=== PATIENT | female | born 1945 | race Caucasian/White ===

== ENCOUNTER → 2017-01-10 | Outpatient (CLI) | payer MEDICARE, OTHER ==
--- NOTE | 2017-01-16 09:53 | MM ---
Reason for exam: clinical finding. Last mammogram was performed 9 years and 6 months ago. History: Patient is postmenopausal. Benign excisional biopsy of the left breast, 1968. Indicated problem(s): pain in the right breast. Physical Findings: Nurse did not find any significant physical abnormalities on exam. MG Diagnostic Mammo w CAD KATARINA Bilateral CC and MLO view(s) were taken. Prior study comparison: July 26, 2014, mammogram, performed at [facility]. December 18, 2010, mammogram, performed at [facility]. December 14, 2009, mammogram, performed at [facility]. October 20, 2008, mammogram, performed at [facility]. October 20, 2007, mammogram, performed at [facility]. July 21, 2007, bilateral digital screening mammogram. The breast tissue is heterogeneously dense. This may lower the sensitivity of mammography. Stable benign calcifications. There is no discrete abnormality. No significant new findings when compared with previous films. These results were verbally communicated with the patient on 01/16/17. ASSESSMENT: Benign, BI-RAD 2 RECOMMENDATION: Routine screening mammogram of both breasts in 1 year. Manage patient on a clinical basis.
== END | disposition home or self-care (01) ==
LOC: RADMAMWWP 12:49
DX: N64.4 Mastodynia (principal)

== ENCOUNTER 2017-12-09 10:52 | Emergency (ER) | payer MEDICARE, OTHER ==
[2017-12-09] MEDS ORDERED: SODIUM CHLORIDE 0.9% 1,000 ML IV STA (13:21)
--- NOTE | 2017-12-09 13:24 | ED ---
General Adult HPI - General Chief complaint: Recheck/Abnormal Lab/Rx Stated complaint: Ankle, Lower Back,Neck Pain Time Seen by Provider: 12/09/17 13:04 Source: patient, RN notes reviewed Mode of arrival: ambulatory Limitations: no limitations - History of Present Illness Initial comments: Patient 72-year-old female presented to the emergency room today with multiple complaints. She does admit that she's had some chronic pains going to her feet and legs bilaterally with her sciatic pain. She also admits to some numbness tingling in the upper extremities and some pain to the upper back. States been going on for several months he seems to be getting worse. She states that she has dry mouth. She states that she's had some nerve damage after a dental procedure several years ago that seems it's gotten worse. Patient does admit to headaches. She does admit to a cough. She states she really emergency room today She does not she can function at home with these pain. She has tried follow-up the family doctor appointment with a neurologist for her. She admits it's 2 weeks away. She has no rashes post a few of those at home over the next 2 weeks. Patient states she's been taking Tylenol for pain. She states she was on [place] in the past. She denies any other complaints currently. Patient denies any recent fever, chills, shortness of breath, chest pain, abdominal pain , nausea or vomiting, or any other complaints. - Related Data Home Medications Medication Instructions Recorded Confirmed Acetaminophen Tab [Tylenol Tab] 1,000 mg PO BID 12/09/17 12/09/17 Acetaminophen Tab [Tylenol Tab] 500 mg PO W/LUNCH 12/09/17 12/09/17 Celecoxib [CeleBREX] 200 mg PO DAILY 12/09/17 12/09/17 Cetirizine HCl [Zyrtec] 10 mg PO DAILY 12/09/17 12/09/17 Gabapentin [Neurontin] 400 mg PO QID 12/09/17 12/09/17 Omeprazole 40 mg PO BID 12/09/17 12/09/17 Sertraline HCl [Zoloft] 25 mg PO DAILY 12/09/17 12/09/17 Temazepam [Restoril] 15 mg PO HS 12/09/17 12/09/17 Allergies Allergy/AdvReac Type Severity Reaction Status Date / Time adhesive Allergy Unknown Verified 12/09/17 12:50 carbamazepine Allergy Unknown Verified 12/09/17 12:50 desvenlafaxine [From Pristiq] Allergy Unknown Verified 12/09/17 12:50 phenazopyridine Allergy Unknown Verified 12/09/17 12:50 [From Pyridium] sulfamethoxazole Allergy Unknown Verified 12/09/17 12:50 [From Bactrim] trimethoprim [From Bactrim] Allergy Unknown Verified 12/09/17 12:50 Review of Systems ROS Statement: Those systems with pertinent positive or pertinent negative responses have been documented in the HPI. ROS Other: All systems not noted in ROS Statement are negative. Past Medical History Past Medical History: GERD/Reflux, Osteoarthritis (OA) Additional Past Medical History / Comment(s): nerve damage History of Any Multi-Drug Resistant Organisms: ESBL Date of last positivie culture/infection: 11/28/17 MDRO Source:: ESBL URINE Past Psychological History: No Psychological Hx Reported Smoking Status: Current every day smoker Past Alcohol Use History: None Reported Past Drug Use History: None Reported General Exam - General Exam Comments Initial Comments: General: The patient is awake and alert, in no distress, and does not appear acutely ill. Eye: Pupils are equal, round and reactive to light. Extra-ocular movements are intact. No nystagmus. There is normal conjunctiva bilaterally. No signs of icterus. Ears, nose, mouth and throat: There are moist mucous membranes and no oral lesions. Neck: The neck is supple, there is no tenderness or JVD. Cardiovascular: There is a regular rate and rhythm. No murmur, rub or gallop is appreciated. Respiratory: Lungs are clear to auscultation, respirations are non-labored, breath sounds are equal. No wheezes, stridor, rales, or rhonchi. Gastrointestinal: Abdomen soft on palpation. Musculoskeletal: Normal ROM. Sensation intact. Strength 5/5. Pulses equal bilaterally 2+. No specific bony tenderness. Neurological: A&O x 3. CN II-XII intact, There are no obvious motor or sensory deficits. Coordination appears grossly intact. Speech is normal. Skin: Skin is warm and dry and no rashes or lesions are noted. Psychiatric: Cooperative, appropriate mood & affect, normal judgment. Limitations: no limitations Course Vital Signs 12/09/17 12/09/17 12/09/17 10:54 13:25 14:33 Temperature 99.0 F 99.9 F H Pulse Rate 87 78 79 Respiratory 20 18 18 Rate Blood Pressure 148/76 158/66 156/74 O2 Sat by Pulse 96 93 L 98 Oximetry Medical Decision Making - Medical Decision Making Patient reexamined at this time shows no signs of distress. Patient's labs been reviewed. Patient's resting comfortable. Patient does admit that his symptoms have been ongoing over the last several months. She states she has seen family doctor advised her to get into neurologist also ENT for some of the symptoms. Patient does have upcoming appointments. Patient will be discharged home advised to follow-up family doctor and specialist. Patient and family members at bedside state understanding and agreement. - Lab Data Result diagrams: 12/09/17 13:30 12/09/17 13:30 Lab Results 12/09/17 12/09/17 12/09/17 Range/Units 13:30 13:30 13:30 WBC 9.6 (3.8-10.6) k/uL RBC 4.01 (3.80-5.40) m/uL Hgb 12.6 (11.4-16.0) gm/dL Hct 38.1 (34.0-46.0) % MCV 95.0 (80.0-100.0) fL MCH 31.5 (25.0-35.0) pg MCHC 33.2 (31.0-37.0) g/dL RDW 12.8 (11.5-15.5) % Plt Count 291 (150-450) k/uL Neutrophils % 76 % Lymphocytes % 16 % Monocytes % 6 % Eosinophils % 1 % Basophils % 0 % Neutrophils # 7.3 (1.3-7.7) k/uL Lymphocytes # 1.5 (1.0-4.8) k/uL Monocytes # 0.6 (0-1.0) k/uL Eosinophils # 0.1 (0-0.7) k/uL Basophils # 0.0 (0-0.2) k/uL PT 10.3 (9.0-12.0) sec INR 1.1 (<1.2) APTT 24.2 (22.0-30.0) sec Sodium 133 L (137-145) mmol/L Potassium 3.9 (3.5-5.1) mmol/L Chloride 97 L (98-107) mmol/L Carbon Dioxide 24 (22-30) mmol/L Anion Gap 12 mmol/L BUN 8 (7-17) mg/dL Creatinine 0.62 (0.52-1.04) mg/dL Est GFR (CKD-EPI)AfAm >90 (>60 ml/min/1.73 sqM) Est GFR (CKD-EPI)NonAf >90 (>60 ml/min/1.73 sqM) Glucose 87 (74-99) mg/dL Calcium 9.3 (8.4-10.2) mg/dL Total Bilirubin 0.3 (0.2-1.3) mg/dL AST 25 (14-36) U/L ALT 26 (9-52) U/L Alkaline Phosphatase 79 (38-126) U/L Total Protein 6.8 (6.3-8.2) g/dL Albumin 4.0 (3.5-5.0) g/dL Urine Color Urine Appearance (Clear) Urine pH (5.0-8.0) Ur Specific [place] (1.001-1.035) Urine Protein (Negative) Urine Glucose (UA) (Negative) Urine Ketones (Negative) Urine Blood (Negative) Urine Nitrite (Negative) Urine Bilirubin (Negative) Urine Urobilinogen (<2.0) mg/dL Ur Leukocyte Esterase (Negative) 12/09/17 Range/Units 14:30 WBC (3.8-10.6) k/uL RBC (3.80-5.40) m/uL Hgb (11.4-16.0) gm/dL Hct (34.0-46.0) % MCV (80.0-100.0) fL MCH (25.0-35.0) pg MCHC (31.0-37.0) g/dL RDW (11.5-15.5) % Plt Count (150-450) k/uL Neutrophils % % Lymphocytes % % Monocytes % % Eosinophils % % Basophils % % Neutrophils # (1.3-7.7) k/uL Lymphocytes # (1.0-4.8) k/uL Monocytes # (0-1.0) k/uL Eosinophils # (0-0.7) k/uL Basophils # (0-0.2) k/uL PT (9.0-12.0) sec INR (<1.2) APTT (22.0-30.0) sec Sodium (137-145) mmol/L Potassium (3.5-5.1) mmol/L Chloride (98-107) mmol/L Carbon Dioxide (22-30) mmol/L Anion Gap mmol/L BUN (7-17) mg/dL Creatinine (0.52-1.04) mg/dL Est GFR (CKD-EPI)AfAm (>60 ml/min/1.73 sqM) Est GFR (CKD-EPI)NonAf (>60 ml/min/1.73 sqM) Glucose (74-99) mg/dL Calcium (8.4-10.2) mg/dL Total Bilirubin (0.2-1.3) mg/dL AST (14-36) U/L ALT (9-52) U/L Alkaline Phosphatase (38-126) U/L Total Protein (6.3-8.2) g/dL Albumin (3.5-5.0) g/dL Urine Color Light Yellow Urine Appearance Clear (Clear) Urine pH 6.0 (5.0-8.0) Ur Specific [place] 1.006 (1.001-1.035) Urine Protein Negative (Negative) Urine Glucose (UA) Negative (Negative) Urine Ketones Negative (Negative) Urine Blood Negative (Negative) Urine Nitrite Negative (Negative) Urine Bilirubin Negative (Negative) Urine Urobilinogen <2.0 (<2.0) mg/dL Ur Leukocyte Esterase Negative (Negative) Disposition Clinical Impression: Paresthesia, Mouth dryness, Back pain Disposition: HOME SELF-CARE Condition: Good Instructions: Paresthesia (ED) Additional Instructions: Please use medication as discussed. Please follow-up with family doctor and specialist as discussed. Please return to emergency room if the symptoms increase or worsen or for any other concerns. Is patient prescribed a controlled substance at d/c from ED?: No Referrals: Josephine Viveros MD [Primary Care Provider] - 1-2 days Reza Gonzalez DO [STAFF PHYSICIAN] - 1-2 days Time of Disposition: 15:04
[2017-12-09 13:59] LABS: ALT 26 U/L (9-52); AST 25 U/L (14-36); Alkaline Phosphatase 79 U/L (38-126); Anion Gap 12 mmol/L; Blood Urea Nitrogen 8 mg/dL (7-17); Calcium 9.3 mg/dL (8.4-10.2); Carbon Dioxide 24 mmol/L (22-30); Chloride 97 mmol/L (98-107); Glucose 87 mg/dL (74-99); Potassium 3.9 mmol/L (3.5-5.1); Sodium 133 mmol/L (137-145); Total Bilirubin 0.3 mg/dL (0.2-1.3); Total Protein 6.8 g/dL (6.3-8.2)
[2017-12-09 14:17] LABS: INR 1.1 (<1.2); Partial Thromboplastin Time 24.2 sec (22.0-30.0); Prothrombin Time 10.3 sec (9.0-12.0)
--- NOTE | 2017-12-09 14:23 | CT ---
EXAMINATION TYPE: CT brain bryan reid DATE OF EXAM: 12/09/2017 COMPARISON: None HISTORY: Pain CT DLP: 1347.[address] of the brain was performed. The ventricles, basal cisterns and sulci overlying the cerebral convexities demonstrate mild enlargem ent. There is no evidence for intracranial hemorrhage or sulcal effacement. There is decreased attenuatio n about the periventricular white matter and deep white matter of both cerebral hemispheres, compatib le with chronic small vessel ischemia. No mass effects are seen. If symptoms persist consider MRI. Osseous calvarium is intact. IMPRESSION: 1. Age related atrophic and chronic small vessel ischemic change without acute intracranial process seen at this time. CT Cervical Spine: Unenhanced CT of the cervical spine was performed with bone and soft tissue window settings submitted . Coronal and sagittal reconstruction is obtained. There is normal alignment and prevertebral soft tissues. No evidence for acute cervical fracture . Scattered degenerative disc disease and spondylosis. Biapical scarring. IMPRESSION: 1. No evidence for acute fracture or subluxation of the cervical spine.
--- NOTE | 2017-12-09 14:24 | XR ---
EXAMINATION TYPE: XR chest 2V DATE OF EXAM: 12/09/2017 COMPARISON: NONE HISTORY: Shortness of breath TECHNIQUE: Frontal and lateral views of the chest are obtained. FINDINGS: Scattered senescent parenchymal changes noted. Hyperinflation compatible with COPD. No evidence for infiltrate. No evidence for atelectasis. Heart size is stable. Mediastinal structures are stable and grossly unremarkable. No evidence for hilar prominence. Degenerative changes dorsal spine. IMPRESSION: 1. No evidence for acute pulmonary disease.
[2017-12-09 14:27] LABS: Eosinophils # (A) 0.1 k/uL (0-0.7); RDW 12.8 % (11.5-15.5)
[2017-12-09 14:34] LABS: Basophils % (A) 0 %; Eosinophils % (A) 1 %; HCT 38.1 % (34.0-46.0); HGB 12.6 gm/dL (11.4-16.0); Lymphocytes # (A) 1.5 k/uL (1.0-4.8); Lymphocytes % (A) 16 %; MCH 31.5 pg (25.0-35.0); MCHC 33.2 g/dL (31.0-37.0); Mean Platelet Volume 7.5; Monocytes # (A) 0.6 k/uL (0-1.0); Monocytes % (A) 6 %; Neutrophils # (A) 7.3 k/uL (1.3-7.7); Neutrophils % (A) 76 %; Platelet Count 291 k/uL (150-450); RBC 4.01 m/uL (3.80-5.40); WBC 9.6 k/uL (3.8-10.6)
[2017-12-09 14:36] VITALS: PULSE 79; TEMP 99.9
[2017-12-09 14:48] LABS: Appearance,Urine Clear (Clear); Bilirubin,Urine Negative (Negative); Blood,Urine Negative (Negative); Color,Urine Light Yellow; Glucose,Urine (UA) Negative (Negative); Ketones,Urine Negative (Negative); Leukocyte Esterase,Urine Negative (Negative); Nitrite,Urine Negative (Negative); Protein,Urine Negative (Negative); Specific Gravity,Urine 1.006 (1.001-1.035); Urobilinogen,Urine <2.0 mg/dL (<2.0)
[2017-12-09] MEDS ORDERED: HYDROcodone/APAP 5-325MG 1 EACH TAB PO STA (15:03)
[2017-12-09 16:30] VITALS: BP 157/88; RESP 16
== END 2017-12-09 16:36 | disposition home or self-care (01) ==
LOC: EC 10:52
DX: R20.2 Paresthesia of skin (principal); R68.2 Dry mouth, unspecified; M54.5 Low back pain; M54.2 Cervicalgia; M54.6 Pain in thoracic spine; R51 Headache; R05 Cough; K21.9 Gastro-esophageal reflux disease without esophagitis; M19.90 Unspecified osteoarthritis, unspecified site; F17.200 Nicotine dependence, unspecified, uncomplicated; Z79.1 Long term (current) use of non-steroidal anti-inflammatories (NSAID); Z79.899 Other long term (current) drug therapy; Z88.1 Allergy status to other antibiotic agents; Z88.2 Allergy status to sulfonamides; Z88.8 Allergy status to other drugs, medicaments and biological substances; Z91.048 Other nonmedicinal substance allergy status
CPT/HCPCS: 36415; 70450; 71046; 72125; 80053; 81003; 85025; 85610; 85730; 96360; 99284

== ENCOUNTER → 2017-12-25 | Outpatient (CLI) | payer MEDICARE, OTHER ==
[2017-12-25 14:28] LABS: Basophils % (A) 0 %; Eosinophils % (A) 0 %; HCT 41.2 % (34.0-46.0); HGB 13.8 gm/dL (11.4-16.0); Lymphocytes # (A) 1.6 k/uL (1.0-4.8); Lymphocytes % (A) 15 %; MCH 31.5 pg (25.0-35.0); MCHC 33.5 g/dL (31.0-37.0); MCV 93.9 fL (80.0-100.0); Mean Platelet Volume 7.1; Monocytes # (A) 0.6 k/uL (0-1.0); Monocytes % (A) 6 %; Neutrophils % (A) 77 %; Platelet Count 434 k/uL (150-450); RBC 4.39 m/uL (3.80-5.40); RDW 12.7 % (11.5-15.5); WBC 10.4 k/uL (3.8-10.6)
[2017-12-25 15:00] LABS: T4, Free (Free Thyroxine) 0.92 ng/dL (0.78-2.19)
== END | disposition home or self-care (01) ==
LOC: LABWHC1 12:47
PROVIDERS: ATTEND Otolaryngology
DX: R53.83 Other fatigue (principal); R68.2 Dry mouth, unspecified
CPT/HCPCS: 36415; 84439; 84443; 85025; 86235

== ENCOUNTER → 2018-01-10 | Outpatient (CLI) | payer MEDICARE, OTHER ==
[2018-01-10 12:19] LABS: Blood Urea Nitrogen 14 mg/dL (7-17)
--- NOTE | 2018-01-10 14:04 | CT ---
EXAMINATION TYPE: CT abdomen pelvis w con DATE OF EXAM: 01/10/2018 COMPARISON: None HISTORY: abdominal pain and distention, diarrhea CT DLP: 347.8 mGycm CONTRAST: CT scan of the abdomen and pelvis is performed with Oral Contrast and with IV Contrast, patient injec kendall with 100 mL of Isovue 300. FINDINGS: LUNG BASES-: No visible nodule. No infiltrate. LIVER/GB: Cholecystectomy clips are in place. No space occupying hepatic lesion. Biliary tree is o f normal caliber. PANCREAS: No inflammation. No distinct mass. SPLEEN: No splenic enlargement. No lesion seen. ADRENALS: No nodule. Bilateral adrenal glandular hyperplasia noted. KIDNEYS/BLADDER: Nonobstructing nephrolithiasis lower pole left kidney measures 1.1 cm. Additional 5 mm nonobstructing calculus mid pole left kidney. Extrarenal pelvis is noted the left kidney. Renal cy stic changes are identified bilaterally. Urinary bladder grossly unremarkable. BOWEL: Fluid distended colon with the right hemicolonic wall thickening may reflect underlying coliti s. Sigmoid diverticulosis without diverticulitis. GENITAL ORGANS: No gross abnormality. LYMPH NODES: No greater than 1cm abdominal or pelvic lymph nodes are appreciated. AORTA: No significant abnormality. OSSEOUS STRUCTURES: Severe degenerative change lumbar spine. OTHER: No significant additional abnormality is seen. IMPRESSION: 1. Fluid distended colon with the right hemicolonic wall thickening may reflect underlying colitis. 2. Nonobstructing nephrolithiasis.
== END | disposition home or self-care (01) ==
LOC: RADCTMAIN 11:32
PROVIDERS: ATTEND Family Medicine
DX: N20.0 Calculus of kidney (principal); K63.89 Other specified diseases of intestine
CPT/HCPCS: 82565; 84520; 74177; 36415; Q9967

== ENCOUNTER 2018-02-12 08:28 | Day surgery (SDC) | payer MEDICARE, OTHER ==
[2018-02-07 12:55] VITALS: BMI 20.7
[~2018-02-12 08:28] MED LIST: LACTATED RINGERS 1,000 ML IV SCH
[2018-02-12 08:49] VITALS: TEMP 98.2
[2018-02-12 09:04] LABS: Glucose,Whole Blood 96 mg/dL (75-99)
[2018-02-12] MEDS ORDERED: LIDOCAINE 1% 20 ML VIAL (10MG/ML) FOR IV START INTRADERMA ONE (09:07)
[2018-02-12] MEDS ORDERED: MIDAZOLAM 2 MG/2 ML VIAL IVP ONE (09:08)
[2018-02-12] MEDS ORDERED: LIDOCAINE 1% INJ 10MG/ML (20 ML MDV) ONE (09:40)
[2018-02-12] MEDS ORDERED: PROPOFOL 10 MG/ML 20 ML VIAL IV ONE (09:40)
[2018-02-12] MEDS ORDERED: fentaNYL (PF) 50 MCG/ML 2 ML AMP ONE (09:40)
[2018-02-12] MEDS ORDERED: MIDAZOLAM 2 MG/2 ML VIAL ONE (09:40)
--- NOTE | 2018-02-12 09:56 | P.GSHP ---
History of Present Illness H&P Date: 02/12/18 Chief Complaint: GERD, change in bowel habits Patient here today for upper and lower endoscopy. Patient has had complaints of chronic reflux, burning, abdominal bloating and distention, upper abdominal pain, frequent diarrhea. No recent upper or lower endoscopy. Patient has taken antacids for quite some time. Complaining of hemorrhoidal pain. Past Medical History Past Medical History: GERD/Reflux, Osteoarthritis (OA) Additional Past Medical History / Comment(s): bloating, gas, nauseated, abd. 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 soon History of Any Multi-Drug Resistant Organisms: ESBL Date of last positivie culture/infection: 01-28-18 MDRO Source:: ESBL URINE Past Surgical History: Cholecystectomy, Hysterectomy Additional Past Surgical History / Comment(s): colonoscopy Past Anesthesia/Blood Transfusion Reactions: No Reported Reaction Smoking Status: Current every day smoker - Past Family History Mother Family Medical History: No Reported History Medications and Allergies Home Medications Medication Instructions Recorded Confirmed Type Celecoxib [CeleBREX] 200 mg PO DAILY 12/09/17 02/12/18 History Gabapentin [Neurontin] 400 mg PO QID 12/09/17 02/12/18 History Omeprazole 40 mg PO BID 12/09/17 02/12/18 History Sertraline HCl [Zoloft] 100 mg PO DAILY 12/09/17 02/12/18 History Acetaminophen [Tylenol Extra 500 mg PO Q6H PRN 02/07/18 02/12/18 History Strength] HYDROcodone/APAP 5-325MG [[place] 1 tab PO Q6HR PRN 02/07/18 02/12/18 History 5-325] Melatonin 10 mg PO HS 02/07/18 02/12/18 History busPIRone HCL [Buspar] 30 mg PO DAILY 02/07/18 02/12/18 History predniSONE See Taper PO DAILY 02/07/18 02/12/18 History Allergies Allergy/AdvReac Type Severity Reaction Status Date / Time adhesive Allergy Unknown Verified 02/07/18 11:55 carbamazepine Allergy Unknown Verified 02/07/18 11:55 desvenlafaxine [From Pristiq] Allergy Unknown Verified 02/07/18 11:55 phenazopyridine Allergy Unknown Verified 02/07/18 11:55 [From Pyridium] sulfamethoxazole Allergy Unknown Verified 02/07/18 11:55 [From Bactrim] trimethoprim [From Bactrim] Allergy Unknown Verified 02/07/18 11:55 Surgical - Exam Vital Signs Temp Pulse Resp BP Pulse Ox 98.2 F 83 16 156/85 97 02/12/18 08:48 02/12/18 08:48 02/12/18 08:48 02/12/18 08:48 02/12/18 08:48 Physical exam: General: Well-developed, well-nourished HEENT: Normocephalic, sclerae nonicteric Abdomen: Nontender, nondistended Extremities: No edema Neuro: Alert and oriented Assessment and Plan (1) Change in bowel habits Narrative/Plan: Will proceed with upper and lower endoscopy Current Visit: Yes Status: Acute Code(s): R19.4 - CHANGE IN BOWEL HABIT SNOMED Code(s): 609354234
--- NOTE | 2018-02-12 10:19 | P.PCN ---
Date of Procedure: 02/12/18 Procedure(s) Performed: PREOPERATIVE DIAGNOSIS: GERD, abdominal pain, change in bowel habits POSTOPERATIVE DIAGNOSIS: Diffuse gastritis, mild diverticulosis PROCEDURE: 1. EGD with biopsy 2. Colonoscopy ANESTHESIA: MAC SURGEON: Mika Angeles M.D. SPECIMENS: Antrum, body ENDOSCOPIC PROCEDURE: The patient was on the endoscopy table in the left decubitus position. The Olympus gastroscope was inserted into the oropharynx and passed under direct visualization to the region of the third portion of the duodenum. From that point the scope was slowly withdrawn inspecting all surfaces carefully. There were no neoplastic inflammatory or polypoid lesions throughout the duodenum. The pylorus was widely patent. The stomach was carefully inspected. There was mild diffuse gastritis present. A biopsy of the antrum took place to rule out H. pylori. A biopsy of the body of the stomach also took place. Retroflexion revealed a normal hiatus. The esophagus was then carefully examined. There were no neoplastic inflammatory or polypoid lesions throughout the visualized esophagus. The patient was kept on the endoscopy table in the left decubitus position. The Olympus colonoscope was inserted into the anus and passed under direct visualization to the base of the cecum. The appendiceal orifice was visualized. From that point the scope was slowly withdrawn inspecting all surfaces carefully. There were no neoplastic inflammatory or polypoid lesions throughout the cecum, ascending, transverse, descending, sigmoid and rectum. There was mild left-sided diverticulosis noted. Digital rectal examination was normal. No significant hemorrhoidal disease was seen. Some mild pruritus ani was present. The patient was taken to the recovery room in stable condition per anesthesia guidelines. RECOMMENDATIONS: Continue antiacids. Continue workup of the patient's abdominal pain. Resume diet.
[2018-02-12 10:44] VITALS: BP 136/77; PULSE 82; RESP 18
== END 2018-02-12 10:55 | disposition home or self-care (01) ==
LOC: ORWHC2ENDO 08:28
PROVIDERS: ATTEND Surgery
DX: K29.50 Unspecified chronic gastritis without bleeding (principal); K57.90 Diverticulosis of intestine, part unspecified, without perforation or abscess without bleeding; K21.9 Gastro-esophageal reflux disease without esophagitis; M19.90 Unspecified osteoarthritis, unspecified site; F17.200 Nicotine dependence, unspecified, uncomplicated; Z79.83 Long term (current) use of bisphosphonates; Z79.52 Long term (current) use of systemic steroids; Z79.899 Other long term (current) drug therapy; Z88.6 Allergy status to analgesic agent; Z88.2 Allergy status to sulfonamides; Z88.8 Allergy status to other drugs, medicaments and biological substances; Z91.09 Other allergy status, other than to drugs and biological substances
CPT/HCPCS: 88305; 45378; 43239; J2250; J2001; J3010; J2704

== ENCOUNTER → 2018-02-27 | Outpatient (CLI) | payer MEDICARE, OTHER ==
[2018-02-27 12:56] LABS: Appearance,Urine Clear (Clear); Bilirubin,Urine Negative (Negative); Blood,Urine Negative (Negative); Color,Urine Yellow; Glucose,Urine (UA) Negative (Negative); Ketones,Urine Negative (Negative); Leukocyte Esterase,Urine Negative (Negative); Nitrite,Urine Negative (Negative); PH, Urine 5.5 (5.0-8.0); Protein,Urine Negative (Negative); Specific Gravity,Urine 1.015 (1.001-1.035); Urobilinogen,Urine <2.0 mg/dL (<2.0)
[2018-02-27 19:59] LABS: Vitamin D 25 Hydroxy 24.8 ng/mL (30.0-100.0)
[2018-02-27 20:31] LABS: C Reactive Protein 0.6 mg/dL (0.0-0.8); Calcium 9.6 mg/dL (8.7-10.3); Magnesium 1.9 mg/dL (1.5-2.4)
[2018-02-27 22:51] LABS: Cyclic Citrullinated Pep IgG NEGATIVE (NEGATIVE); RNP <0.2 AI
[2018-03-03 08:46] LABS: Vitamin B1 82 ug/L (38-122)
[2018-03-04 07:53] LABS: Vitamin E (Alpha Tocopherol) 1493 ug/dL (500-1800)
[2018-03-05 12:45] LABS: Nicotinuric Acid None Detected
[2018-03-05 15:21] LABS: Vitamin K 2.81 nmol/L (0.22-4.88)
== END | disposition home or self-care (01) ==
LOC: LABWHC1 11:41
PROVIDERS: ATTEND Psychiatry & Neurology Neurology
DX: Z01.818 Encounter for other preprocedural examination (principal); M79.7 Fibromyalgia; G89.4 Chronic pain syndrome; Z79.899 Other long term (current) drug therapy
CPT/HCPCS: 36415; 81003; 82306; 82310; 82550; 83519; 83735; 84207; 84425; 84446; 84590; 84591; 84597; 86140; 86200; 86235; 93005

== ENCOUNTER → 2018-03-31 | Outpatient (CLI) | payer MEDICARE, OTHER | END | disposition home or self-care (01) | LOC: LABWHC1 13:14 | PROVIDERS: ATTEND Nurse Practitioner Acute Care | DX: Z51.81 Encounter for therapeutic drug level monitoring (principal) | CPT/HCPCS: 36415; 82565; 84520 ==

== ENCOUNTER → 2018-05-12 | Outpatient (CLI) | payer MEDICARE, OTHER ==
--- NOTE | 2018-05-12 10:15 | CT ---
EXAMINATION TYPE: CT soft tissue neck wo/w con DATE OF EXAM: 05/12/2018 COMPARISON: CT cervical spine 12/09/2017 HISTORY: difficulty swallowing, lumpectomy mass CT DLP: 553.3 mGycm CONTRAST: Patient injected with 100 mL of Isovue 300. TECHNIQUE: Axial images at 3 mm thick sections. Reconstructed images in the coronal plane and sagitt al plane are reviewed. FINDINGS: Limited CT sections are obtained the lung apices. The lung apices appear clear. CT neck: The torus tubarius and fossa of Rosenmuller are normal. Senior Information Security [employer]st spaces are normal. Para nasal sinuses and mastoid air cells are clear. Parotid glands appear normal and symmetrical. Submandibular glands, are normal. Parapharyngeal spac es are normal. No suspicious adenopathy is evident. The hypopharynx appears within normal limits. Vocal cord level appear symmetrical. There are multiple heterogenous enhancing masses within the thyroid. There is degenerative changes through the cervical spine. Cervical lordosis is present C5 level. Dege nerative disc changes are present with loss of disc height cervical spine. Degenerative changes throu gh the cervical spine appears similar to 12/09/2017 IMPRESSIONS: 1. Degenerative changes of the cervical spine. 2. No abnormal etiology to account for dysphasia.
== END ==
LOC: RADCTMAIN 08:02
PROVIDERS: ATTEND Family Medicine
DX: M47.812 Spondylosis without myelopathy or radiculopathy, cervical region (principal)
CPT/HCPCS: 82565; 84520; 70492; 36415; Q9967

== ENCOUNTER → 2018-05-13 | Outpatient (CLI) | payer MEDICARE, OTHER ==
--- NOTE | 2018-05-13 15:21 | US ---
EXAMINATION TYPE: US kidneys/renal and bladder DATE OF EXAM: 05/13/2018 COMPARISON: CT abdomen pelvis dated 01/10/2018 CLINICAL HISTORY: N28.1 KATARINA RENAL CYST. EXAM MEASUREMENTS: Right Kidney: 10.9 x 4.1 x 4.7 cm Left Kidney: 11.7 x 4.6 x 4.7 cm Right Kidney: cyst measuring 1.7 x 1.5 x 1.4cm Left Kidney: multiple cystic masses seen superior and inferior, superior measuring 1.5 x 1.8 x 0.9cm and inferior measuring 1.3 x 1.7 x1.1cm Bladder: wnl There is no evidence for hydronephrosis at this point in time. No nephrolithiasis is seen. The urina ry bladder is anechoic. IMPRESSION: Bilateral renal cysts appear simple. No hydronephrosis of either kidney.
== END ==
LOC: RADUSWWP 12:11
PROVIDERS: ATTEND Family Medicine
DX: N28.1 Cyst of kidney, acquired (principal)
CPT/HCPCS: 76770

== ENCOUNTER → 2018-10-22 | Outpatient (CLI) | payer MEDICARE, OTHER | END | disposition home or self-care (01) | LOC: LABWHC1 13:34 | PROVIDERS: ATTEND Psychiatry & Neurology Neurology | DX: Z53.9 Procedure and treatment not carried out, unspecified reason (principal) ==